=== PATIENT | female | born 1985 | race Caucasian/White ===

== ENCOUNTER 2016-04-04 19:02 | Emergency (ER) | payer OTHER ==
[2016-04-04 19:26] VITALS: TEMP 98.8
--- NOTE | 2016-04-04 19:51 | CPEKG ---
Heart Rate: 89 RR Interval: 674 P-R Interval: 160 QRSD Interval: 78 QT Interval: 364 QTC Interval: 443 P Story: 61 QRS Story: 57 T Wave Story: 49 EKG Severity - NORMAL ECG - EKG Impression: SINUS RHYTHM Electronically Signed By: Gee Silva 04-Apr-2016 22:46:34
--- NOTE | 2016-04-04 20:02 | UCPHY ---
H & P Patient Type: New Chief Complaint Nursing Narrative: tachycardia Time Seen by Provider: 04/04/16 19:30 HPI/ROS: This patient reports that she is grieving the of her izzoxyf-ia-hbm and while riding in the car with her this afternoon shortly prior to arrival she experienced fleeting feeling of an extra couple of heartbeat the made her anxious. She states that episode was fleeting-a few seconds or less and she has no further cardiac symptoms at this time. Her qauugnv-zy-cdl approximately 1 month ago. ROS: No fevers or chills. No other constitutional symptoms HEENT: No recent URI symptoms or headache. Pulmonary: No shortness of breath. No cough. Cardiovascular: No lower extremity swelling. She had a fleeting feeling of generalized weakness during the episode which has since resolved. No other cardiovascular complaints. GI: No nausea or vomiting. Neuro: Patient had brief paresthesias bilateral arms that have also resolved. 10 point ROS is otherwise negative. Source: Patient Exam Limitations: Language barrier (I used the phone translation service to obtain history with this patient and explain findings and plan.) - Personal History LMP (Females 10-55): 8-14 Days Ago Current Tetanus Diphtheria and Acellular Pertussis (TDAP): Yes - Medical/Surgical History PMH: Otherwise healthy. Family history is negative for significant cardiac dysrhythmias or other cardiac pathology Hx Asthma: No Hx Chronic Respiratory Disease: No Hx Diabetes: No Hx Cardiac Disease: No Hx Renal Disease: No Hx Cirrhosis: No Hx Alcoholism: No Hx HIV/AIDS: No Hx Splenectomy or Spleen Trauma: No Other PMH: none - Family History Significant Family History: No pertinent family hx - Social History Smoking Status: Never smoked Alcohol Use: None Drug Use: None Additional Social History: No recent foreign travel - Physical Exam Exam: General Appearance: Pleasant fit-appearing 31-year-old female Alert, no distress. Eyes: Pupils equal and round no pallor or injection. ENT, Mouth: Mucous membranes moist. Respiratory: There are no retractions, lungs are clear to auscultation. No chest wall tenderness. Cardiovascular: Regular rate and rhythm. No murmur gallop rub. No calf swelling or tenderness. No peripheral edema. Gastrointestinal: Abdomen is soft and nontender, no masses, bowel sounds normal. Neurological: Alert with no focal deficits. Skin: Warm and dry, no rashes. Musculoskeletal: Neck is supple nontender. Extremities are symmetrical, full range of motion. Psychiatric: Her mood and affect are normal here. She becomes sad when discussing her maweomp-gr-uxj but she maintains normal rate of speech and logical thought content. DIFFERENTIAL DIAGNOSIS: After history and physical exam differential diagnosis was considered for grief response, anxiety, hyperventilation, PACs or PVCs, WPW Constitutional: Initial Vital Signs Temperature (C) 37.1 C 04/04/16 19:21 Heart Rate 85 04/04/16 19:21 Respiratory Rate 14 04/04/16 19:21 Blood Pressure 147/48 H 04/04/16 19:21 O2 Sat (%) 100 04/04/16 19:21 O2 Delivery Mode Room Air Allergies/Adverse Reactions: Penicillins Allergy (Verified 04/04/16 19:26) Medical Decision Making - Diagnostics EKG Interpretation: 12 lead EKG performed shortly after arrival reveals a sinus rhythm at a normal rate. Intervals: Normal throughout [place]: Normal throughout Overall assessment: Normal EKG for complete read please refer to trace master ED Course/Re-evaluation: Discussion: Urinary fleeting nature of the patient's palpitations, negative EKG and brief responses suspect that she had hyperventilation with potential PACU PVC counseled regarding this. No concerning findings on history, exam our EKG here today. Departure - Departure Disposition: Home, Routine, Self-Care Clinical Impression: Heart palpitations, Grief reaction Condition: Good Instructions: Grief and Loss (ED), Palpitations (ED) Additional Instructions: Diagnoses: 1. Heart palpitations 2. Grief reaction I think that your symptoms are attributable in large part to the grief your feeling about the of your niuxqum-ib-bwn. Her EKG tonight is normal. Plan: Daily exercise for 20-30 minutes Daily relaxation for 20 or 30 minutes Go to the emergency department for any significant worsening symptoms or for any ongoing symptoms, call Dr. Emani Xavier-manager strategic development for further evaluation Referrals: NONE *PRIMARY CARE P,. [Primary Care Provider] - As per Instructions Emani Xavier MD [Medical Doctor] - As per Instructions - PQRS PQRS Measurement: NA
[2016-04-04 20:31] VITALS: BP 106/70; PULSE 84; RESP 16; O2SAT 96
== END 2016-04-04 20:31 | disposition home or self-care (01) ==
LOC: CED 19:02
DX: R00.2 Palpitations (principal); F43.20 Adjustment disorder, unspecified
CPT/HCPCS: 93010-PO; 99204-PO; G0463-PO